=== PATIENT | female | born 1990 | race Caucasian/White ===

== ENCOUNTER 2017-06-14 08:34 | Outpatient (CLI) | payer OTHER | END 2017-06-14 09:28 | disposition home or self-care (01) | LOC: OBT 08:34 → L-D 08:34 → OBT 09:28 | DX: O26.893 Other specified pregnancy related conditions, third trimester (principal); M79.89 Other specified soft tissue disorders; Z3A.32 32 weeks gestation of pregnancy | CPT/HCPCS: Z7500 ==

== ENCOUNTER 2017-11-29 15:00 | Emergency (ER) | payer OTHER | END 2017-11-29 15:24 | disposition home or self-care (01) | LOC: E/R 15:24 | DX: J02.9 Acute pharyngitis, unspecified (principal) | CPT/HCPCS: 99283; Z7502 ==

== ENCOUNTER 2017-12-10 15:07 | Emergency (ER) | payer OTHER ==
[2017-12-10] MEDS: ACETAMINOPHEN 325 MG TAB PO (15:52)
[2017-12-10] MEDS: FAMOTIDINE 20 MG TAB PO (15:52)
[2017-12-10] MEDS: LIDOCAINE/MYLANTA 40 ML BTL PO (15:53)
[2017-12-10 17:40] LABS: ADD MAN DIFF? NO
[2017-12-10 17:42] LABS: BASOPHIL # 0.1 10^3/ul (0.0-0.1); BASOPHILS % 0.4 % (0.0-2.0); EOSINOPHILS # 0.2 10^3/ul (0.0-0.5); EOSINOPHILS % 1.6 % (0.0-7.0); HEMOGLOBIN 13.1 g/dl (12.0-16.0); LYMPHOCYTES # 3.5 10^3/ul (0.8-2.9); LYMPHOCYTES % 26.2 % (15.0-51.0); MEAN CORPUSCULAR HEMOGLOBIN 28.7 pg (29.0-33.0); MEAN CORPUSCULAR HGB CONC 33.6 g/dl (32.0-37.0); MEAN CORPUSCULAR VOLUME 85.5 fl (82.0-101.0); MONOCYTE # 0.6 10^3/ul (0.3-0.9); MONOCYTES % 4.4 % (0.0-11.0); NEUTROPHIL # 8.9 10^3/ul (1.6-7.5); NEUTROPHILS % 66.9 % (39.0-77.0); PLATELET COUNT 409 10^3/UL (140-415); RED BLOOD COUNT 4.56 10^6/ul (4.20-5.40); RED CELL DISTRIBUTION WIDTH 14.1 % (11.5-14.5)
[2017-12-10 17:42] LABS: WHITE BLOOD COUNT 13.3 10^3/ul (4.8-10.8)
[2017-12-10 18:01] LABS: ALANINE AMINOTRANSFERASE 41 IU/L (13-69); ALBUMIN 4.5 g/dl (3.3-4.9); ALBUMIN/GLOBULIN RATIO 1.07; ALKALINE PHOSPHATASE 95 IU/L (42-121); ANION GAP 18 (8-16); ASPARTATE AMINO TRANSFERASE 21 IU/L (15-46); BILIRUBIN,INDIRECT 0.4 mg/dl (0-1.1); BILIRUBIN,TOTAL 0.4 mg/dl (0.2-1.3); BLOOD UREA NITROGEN 11 mg/dl (7-20); CALCIUM 9.3 mg/dl (8.4-10.2); CARBON DIOXIDE 25 mmol/L (21-31); CHLORIDE 104 mmol/L (97-110); CREATININE 0.69 mg/dl (0.44-1.00); GLUCOSE 81 mg/dl (70-220); LIPASE 106 U/L (23-300); POTASSIUM 4.7 mmol/L (3.5-5.1); SODIUM 142 mmol/L (135-144); TOTAL PROTEIN 8.7 g/dl (6.1-8.1)
== END 2017-12-10 19:02 | disposition home or self-care (01) ==
LOC: FTE 15:07
DX: K83.8 Other specified diseases of biliary tract (principal); K82.8 Other specified diseases of gallbladder
CPT/HCPCS: 76705; 80053; 83690; 85025; 99284-25

== ENCOUNTER 2018-10-15 09:07 | Emergency (ER) | payer OTHER ==
[2018-10-15] MEDS: ACETAMINOPHEN 500 MG TAB PO (10:37)
== END 2018-10-15 10:40 | disposition home or self-care (01) ==
LOC: FTE 09:07
DX: J02.9 Acute pharyngitis, unspecified (principal)
CPT/HCPCS: 99283; Z7502